=== PATIENT | female | born 1970 | race Caucasian/White ===

== ENCOUNTER 2017-01-03 07:24 | Emergency (ER) | payer MEDICAID ==
[~2017-01-03] VITALS: Ht 162.6 cm; Wt 63.6 kg
[2017-01-03] MEDS ORDERED: METH10 PO (07:45)
[2017-01-03] MEDS ORDERED: LORA-192 PO (07:45)
[2017-01-03] MEDS ORDERED: LAMO100T56 PO (07:45)
[2017-01-03] MEDS ORDERED: LORazepam 1 MG TABLET PO ONE (08:30)
[2017-01-03 08:36] VITALS: BP 130/80
== END 2017-01-03 08:46 | disposition left against medical advice (07) ==
LOC: EMS 07:26
DX: G40.909 Epilepsy, unspecified, not intractable, without status epilepticus (principal); R00.0 Tachycardia, unspecified; F17.210 Nicotine dependence, cigarettes, uncomplicated
CPT/HCPCS: 93005; 99283

== ENCOUNTER 2018-06-16 16:32 | Emergency (ER) | payer MEDICAID ==
[~2018-06-16] VITALS: Ht 162.6 cm; Wt 59.0 kg
[~2018-06-16 16:32] MED LIST: LAMO100T56 PO; LORA-192 PO; METH10 PO
[2018-06-16 16:58] VITALS: BP 124/77
== END 2018-06-16 19:05 | disposition left against medical advice (07) ==
LOC: EMS 16:34
DX: R10.11 Right upper quadrant pain (principal); F17.210 Nicotine dependence, cigarettes, uncomplicated; F12.90 Cannabis use, unspecified, uncomplicated; F11.90 Opioid use, unspecified, uncomplicated; F13.90 Sedative, hypnotic, or anxiolytic use, unspecified, uncomplicated; Z53.21 Procedure and treatment not carried out due to patient leaving prior to being seen by health care provider